=== PATIENT | male | born 1985 | race Caucasian/White ===

== ENCOUNTER 2021-01-26 21:37 | Emergency (ER) | payer SELFPAY ==
[2021-01-26] MEDS ORDERED: Sodium Chloride 0.9% 1,000 ML ONE (22:42)
[2021-01-26] MEDS ORDERED: Acetaminophen 500 MG TAB ONE (22:42)
== END 2021-01-26 23:15 | disposition home or self-care (01) ==
LOC: MADERS 21:37
DX: E86.0 Dehydration (principal)
CPT/HCPCS: 99283; J7050